=== PATIENT | female | born 1980 | race Two or more races ===

== ENCOUNTER 2016-07-02 14:40 | Observation (INO) | payer SELFPAY ==
[~2016-07-02 14:40] MED LIST: PREN-129 OR
== END 2016-07-02 16:40 | disposition home or self-care (01) | DRG 782 ==
LOC: LDRP 14:40
PROVIDERS: ADMIT Obstetrics & Gynecology; ATTEND Obstetrics & Gynecology
DX: O91.212 Nonpurulent mastitis associated with pregnancy, second trimester (principal); Z3A.24 24 weeks gestation of pregnancy
CPT/HCPCS: 59025; 81002; G0378

== ENCOUNTER 2016-07-16 13:00 | Observation (INO) | payer SELFPAY | END 2016-07-16 14:40 | disposition home or self-care (01) | DRG 781 | LOC: LDRP 13:00 | PROVIDERS: ADMIT Specialist; ATTEND Specialist | DX: O26.892 Other specified pregnancy related conditions, second trimester (principal); R10.2 Pelvic and perineal pain; M54.9 Dorsalgia, unspecified; Z3A.26 26 weeks gestation of pregnancy | CPT/HCPCS: 59025; 81002; G0378 ==

== ENCOUNTER 2016-07-16 22:42 | Observation (INO) | payer SELFPAY ==
[2016-07-16 23:00] VITALS: BP 118/67
== END 2016-07-17 00:38 | disposition home or self-care (01) | DRG 781 ==
LOC: ER 22:48 → LDRP 23:10
PROVIDERS: ADMIT Specialist; ATTEND Specialist
DX: O21.0 Mild hyperemesis gravidarum (principal); O26.892 Other specified pregnancy related conditions, second trimester; R10.9 Unspecified abdominal pain; O99.512 Diseases of the respiratory system complicating pregnancy, second trimester; J40 Bronchitis, not specified as acute or chronic; Z3A.26 26 weeks gestation of pregnancy
CPT/HCPCS: 59025; 81002; 93005; 99285; G0378